=== PATIENT | female | born 1970 ===

== ENCOUNTER → 2024-12-11 10:47 | Outpatient (REF) | payer OTHER, SELFPAY | LOC: EMG 10:47 | PROVIDERS: ATTENDING PHYSICIAN Orthopaedic Surgery; FAMILY PHYSICIAN Internal Medicine | DX: S42.402A Unspecified fracture of lower end of left humerus, initial encounter for closed fracture (principal); R20.0 Anesthesia of skin | CPT/HCPCS: 95886; 95910 ==